=== PATIENT | female | born 1965 | race Caucasian/White ===

== ENCOUNTER 2023-10-21 16:49 | Emergency (ER) | payer SELFPAY ==
[2023-10-21 17:04] VITALS: BP 154/79; PULSE 52; RESP 18; TEMP 98.7
--- NOTE | 2023-10-21 17:38 | ED ---
Eye Problem HPI - General Chief complaint: Eye Problems Stated complaint: Possible detached retina Time Seen by Provider: 10/21/23 17:01 Source: patient Mode of arrival: ambulatory Limitations: no limitations - History of Present Illness Initial comments: 58-year-old female presenting with chief complaint of flashes and floaters in the left eye. Patient states that she had sudden onset flashes of light and black floaters in her eye this afternoon. She called [facility] vision who told her to report to the ER for possible detached retina. Patient is having no pain to the eye. No injury or trauma. No loss of vision. No "black curtain" in the vision. Denies any blurry vision. Patient wears reading glasses, states that she had LASEK surgery over 20 years ago. - Related Data Allergies Allergy/AdvReac Type Severity Reaction Status Date / Time No Known Allergies Allergy Verified 10/21/23 16:56 Review of Systems ROS Statement: Those systems with pertinent positive or pertinent negative responses have been documented in the HPI. ROS Other: All systems not noted in ROS Statement are negative. Past Medical History Additional Past Medical History / Comment(s): sinus infection History of Any Multi-Drug Resistant Organisms: None Reported Past Surgical History: Cholecystectomy Additional Past Surgical History / Comment(s): lasix - 20+ years go Past Psychological History: No Psychological Hx Reported Smoking Status: Never smoker Past Alcohol Use History: Occasional Past Drug Use History: None Reported General Exam Limitations: no limitations General appearance: alert, in no apparent distress Head exam: Present: atraumatic, normocephalic Eye exam: Present: normal appearance, PERRL, EOMI. Absent: scleral icterus, periorbital swelling Pupils: Present: normal accommodation Expanded Eyelids: Normal Inspection: Bilateral Pupils: Regular, Round: Bilateral Sclera/Conjunctival: Normal Inspection: Bilateral Visual acuity (R) = 20/: 40 Visual acuity (L) = 20/: 20 IOP (R) in mmH IOP (L) in mmH Neck exam: Present: normal inspection Respiratory exam: Absent: respiratory distress Neurological exam: Present: alert, oriented X3 Psychiatric exam: Present: normal affect, normal mood Skin exam: Present: warm, dry Course Vital Signs 10/21/23 16:53 Temperature 98.7 F Pulse Rate 52 L Respiratory 18 Rate Blood Pressure 154/79 O2 Sat by Pulse 99 Oximetry Medical Decision Making - Medical Decision Making Was pt. sent in by a medical professional or institution ([facility] Martinez, [employer], urgent care, hospital, or [facility]...) When possible be specific @ -No Did you speak to anyone other than the patient for history (EMS, parent, family, police, friend...)? What history was obtained from this source @ -No Did you review nursing and triage notes (agree or disagree)? Why? @ -I reviewed and agree with nursing and triage notes Were old charts reviewed (outside hosp., previous admission, EMS record, old EKG, old radiological studies, urgent care reports/EKG's, [facility] records)? Report findings @ -No old charts were reviewed Differential Diagnosis (chest pain, altered mental status, abdominal pain women, abdominal pain men, vaginal bleeding, weakness, fever, dyspnea, syncope, headache, dizziness, GI bleed, back pain, seizure, CVA, palpatations, mental health, musculoskeletal)? @ -Differential includes vitreous floater, vitreous hemorrhage, retinal tear or detachment, this is not an all-inclusive list EKG interpreted by me (3pts min.). @ -As above X-rays interpreted by me (1pt min.). @ -None done CT interpreted by me (1pt min.). @ -None done U/S interpreted by me (1pt. min.). @ -None done What testing was considered but not performed or refused? (CT, X-rays, U/S, labs)? Why? @ -None What meds were considered but not given or refused? Why? @ -None Did you discuss the management of the patient with other professionals (professionals i.e. , M[facility]IE, [employer], lab, RT, psych nurse, child protective services social worker, dining room manager, teacher, assurance officer, returned case inspector)? Give summary @ -I spoke with community cultural development officer Dr. Bean, who states that if the patient is not having any vision loss or curtain like effect then she would be able to follow-up in the office. He advised her to call first thing on Monday morning a nd she will be seen that same day. Was smoking cessation discussed for >3mins.? @ -No Was critical care preformed (if so, how long)? @ -No Were there social determinants of health that impacted care today? How? (Homelessness, low income, unemployed, alcoholism, drug addiction, transportation, low edu. Level, literacy, decrease access to med. care, half-way, rehab)? @ -No Was there de-escalation of care discussed even if they declined (Discuss DNR or withdrawal of care, Hospice)? DNR status @ -No What co-morbidities impacted this encounter? (DM, HTN, Smoking, COPD, CAD, Cancer, CVA, ARF, Chemo, Hep., AIDS, mental health diagnosis, sleep apnea, morbid obesity)? @ -None Was patient admitted / discharged? Hospital course, mention meds given and route, prescriptions, significant lab abnormalities, going to OR and other pertinent info. @ -58-year-old female presenting with chief complaint of flashes and floaters in the left eye. History and physical exam are conducted. EOMI, PERRLA. No injury or trauma. 20/20 visual acuity in the left eye. 16 IOP bilaterally. Patient has had no vision loss or black curtain coming down over her visual field. I spoke with Dr. Bean who states that if the patient is having no curtain coming across her visual field she would be able to follow-up in the office on Monday. I advised her to call first thing Monday morning. I stressed to the patient that if she does have any loss of vision or curtain like effect over her visual field to report back to the ER. Discharged home. Follow-up with PCP. Report back to ER with any new or worsening symptoms. Discussed return parameters and answered all questions. Patient conveyed verbal understanding and agreed to the plan. I discussed this case in detail with my attending Dr. Lo Undiagnosed new problem with uncertain prognosis? @ -No Drug Therapy requiring intensive monitoring for toxicity (Heparin, Nitro, Insulin, Cardizem)? @ -No Were any procedures done? @ -No Diagnosis/symptom? @ -Flashes and floaters Acute, or Chronic, or Acute on Chronic? @ -Acute Uncomplicated (without systemic symptoms) or Complicated (systemic symptoms)? @ -Uncomplicated Side effects of treatment? @ -No Exacerbation, Progression, or Severe Exacerbation? @ -No Poses a threat to life or bodily function? How? (Chest pain, [place], [place], pneumonia, PE, COPD, DKA, ARF, appy, cholecystitis, CVA, Diverticulitis, Homicidal, Suicidal, threat to staff... and all critical care pts) @ -Low likelihood Disposition Clinical Impression: Floaters in visual field Disposition: HOME SELF-CARE Condition: Fair Additional Instructions: Follow-up with ophthalmology, call Dr. Bean's office first thing on Monday What is retinal detachment? Retinal detachment is an eye problem that happens when your retina (a light- sensitive layer of tissue in the back of your eye) is pulled away from its normal position at the back of your eye. What are the symptoms of retinal detachment? If only a small part of your retina has detached, you may not have any symptoms. But if more of your retina is detached, you may not be able to see as clearly as normal, and you may notice other sudden symptoms, including: A lot of new floaters (small dark spots or squiggly lines that float across your vision) Flashes of light in one eye or both eyes A dark shadow or curtain on the sides or in the middle of your field of vision Retinal detachment is a medical emergency. If you have symptoms of a detached retina, its important to go to your eye doctor or the emergency room right away. The symptoms of retinal detachment often come on quickly. If the retinal detachment isnt treated right away, more of the retina can detach which increases the risk of permanent vision loss or blindness. Am I at risk for retinal detachment? Anyone can have a retinal detachment, but some people are at higher risk. You are at higher risk if: You or a family member has had a retinal detachment before Youve had a serious eye injury Youve had eye surgery, like surgery to treat cataracts Some other problems with your eyes may also put you at higher risk, including: Diabetic retinopathy (a condition in people with diabetes that affects blood vessels in the retina) Extreme nearsightedness (myopia), especially a severe type called degenerative myopia Posterior vitreous detachment (when the gel-like fluid in the center of the eye pulls away from the retina) Certain other eye diseases, including retinoschisis (when the retina separates into 2 layers) or lattice degeneration (thinning of the retina) If youre concerned about your risk for retinal detachment, talk with your eye doctor. What causes retinal detachment? There are many causes of retinal detachment, but the most common causes are aging or an eye injury. There are 3 types of retinal detachment: rhegmatogenous, tractional, and exuda tive. Each type happens because of a different problem that causes your retina to move away from the back of your eye. Learn more about what causes each type of retinal detachment How can I prevent retinal detachment? Since retinal detachment is often caused by aging, theres often no way to prevent it. But you can lower your risk of retinal detachment from an eye injury by wearing safety goggles or other protective eye gear when doing risky activities, like playing sports. If you experience any symptoms of retinal detachment, go to your eye doctor or the emergency room right away. Early treatment can help prevent permanent vision loss. Its also important to get comprehensive dilated eye exams regularly. A dilated eye exam can help your eye doctor find a small retinal tear or detachment early, before it starts to affect your vision. Is patient prescribed a controlled substance at d/c from ED?: No Referrals: Shanita Martinez MD [Primary Care Provider] - 1-2 days Chad Bean MD [STAFF PHYSICIAN] - 1-2 days Time of Disposition: 17:38
== END 2023-10-21 17:53 | disposition home or self-care (01) ==
LOC: EC 16:49
DX: H43.392 Other vitreous opacities, left eye (principal)
CPT/HCPCS: 99283